=== PATIENT | female | born 1985 | race American Indian/Alaskan Native ===

== ENCOUNTER 2018-04-26 15:15 | Inpatient (IN) | payer OTHER ==
[~2018-04-26] VITALS: Ht 157.5 cm; Wt 76.2 kg
[~2018-04-26 15:15] MED LIST: PRENATAL CAPLE1 EACH PO
== END 2018-04-30 16:00 | disposition home or self-care (01) | DRG 807 ==
LOC: OB/GYN 04-28 06:59 → LDR 04-28 06:59 → OB/GYN 04-28 20:59 → RECOVERY 05-14 15:15
PROC: 10E0XZZ Delivery of Products of Conception, External Approach (ICD-10-PCS; principal; 2018-04-28)
PROC: 0KQM0ZZ Repair Perineum Muscle, Open Approach (ICD-10-PCS; 2018-04-28)
PROC: 4A1HXCZ Monitoring of Products of Conception, Cardiac Rate, External Approach (ICD-10-PCS; 2018-04-28)
DX: O70.1 Second degree perineal laceration during delivery (principal); Z37.0 Single live birth; Z3A.37 37 weeks gestation of pregnancy

== ENCOUNTER 2025-04-21 11:38 | Emergency (ER) | payer OTHER ==
[~2025-04-21] VITALS: Ht 157.5 cm; Wt 68.0 kg
[2025-04-21] MEDS ORDERED: 0.9 % SODIUM CHLORIDE 1,000 ML IV SCH (13:30)
[2025-04-21] MEDS ORDERED: IPRATROPIUM BROMIDE 0.5 MG/2.5 ML AMPUL.NEB IH SCH (13:30)
[2025-04-21] MEDS ORDERED: GUAIFENESIN 200 MG/10 ML BLIST.PACK PO ONE ×2 (13:30→13:37)
[2025-04-21] MEDS ORDERED: ALBUTEROL SULFATE 3 ML/2.5 MG AMPUL.NEB IH SCH (13:30)
[2025-04-21] MEDS ORDERED: ALBUTEROL SULFATE 3 ML/2.5 MG AMPUL.NEB IH ONE (13:49)
[2025-04-21] MEDS ORDERED: IPRATROPIUM BROMIDE 0.5 MG/2.5 ML AMPUL.NEB IH ONE (13:49)
[2025-04-21 14:27] LABS: BASO % 0.3 % (0.1-1.2); EOS # 0.03 (0.04-0.54); EOS % 0.3 % (0.7-7.0); LYMPH # 1.34 (1.18-3.74); LYMPH % 12.6 % (19.3-53.1); MEAN PLATELET VOLUME 10.70 fl (9.4-12.4); MONO # 0.78 (0.24-0.82); MONO % 7.3 % (4.7-12.5); NEUT # 8.42 (1.56-6.13); NEUT % 79.0 % (34.0-71.1); RED CELL DISTRIBUTION WIDTH 13.2 % (11.6-14.4)
[2025-04-21 14:37] LABS: COVID-19 AG NEGATIVE (NEGATIVE)
[2025-04-21 14:53] LABS: ERYTHROCYTE SEDIMENTATION RATE 42 mm/hr (0-20)
[2025-04-21 14:57] LABS: ALT/SGPT 27.0 U/L (12-78); AST/SGOT 15.0 U/L (15-37); BILIRUBIN TOTAL 0.24 mg/dL (0.3-1.2); BUN CREA RATIO 13.0 (7.0-25.0); CREATININE SERUM 0.72 mg/dL (0.55-1.02); GFR 90.65; GLOBULINA 4.7 G/DL (2.4-3.5); GLUCOSE FASTING 111.0 mg/dL (65-100); OSMOLALITY SERUM 279.0 MOSM/KG (275-295)
== END 2025-04-21 17:42 | disposition home or self-care (01) ==
LOC: ER 11:38
PROVIDERS: General Practice
DX: J10.1 Influenza due to other identified influenza virus with other respiratory manifestations (principal); J45.901 Unspecified asthma with (acute) exacerbation; Z20.822 Contact with and (suspected) exposure to COVID-19